=== PATIENT | female | born 1980 | race Caucasian/White ===

== ENCOUNTER → 2018-02-28 | Outpatient (CLI) | payer OTHER ==
--- NOTE | 2018-02-28 10:06 | Diagnostic Imaging Report ---
PROCEDURE: US Gallbladder. TECHNIQUE: Multiple real-time grayscale images were obtained over the right upper quadrant in various projections. INDICATION: Right upper quadrant pain. Liver parenchyma is homogeneous with normal echotexture. Gallbladder is clear without stones or wall thickening. Common duct is not dilated. Pancreas appeared normal. Right kidney measures 9.9 cm in length and appears normal. There is no ascites. IMPRESSION: Negative gallbladder sonogram. Dictated by: Dictated on workstation # [id number]
== END ==
LOC: RAD 09:08
PROVIDERS: ATTEND Nurse Practitioner Family
DX: R10.11 Right upper quadrant pain (principal); R74.8 Abnormal levels of other serum enzymes
CPT/HCPCS: 76705

== ENCOUNTER → 2018-03-03 | Outpatient (CLI) | payer OTHER ==
[~2018-03-03] MED LIST: CATHETER FLUSH 10 ML SYR IV PRN
--- NOTE | 2018-03-03 12:30 | Diagnostic Imaging Report ---
INDICATION: Right upper quadrant pain. Patient was administered 4.8 mCi technetium 99m Choletec and imaging over the abdomen was performed. At one hour patient ingested one can of ensure and gallbladder ejection fraction was calculated. There is homogeneous uptake of activity by the liver with prompt excretion of activity into the gallbladder and common duct. Normal passage of activity into the small bowel is seen. Gallbladder ejection fraction is abnormally low at 12%. Normal values are 33% or greater. IMPRESSION: 1. No evidence of cystic duct or common bile duct obstruction. 2. Low gallbladder ejection fraction of 12%. Dictated by: Dictated on workstation # [id number]
== END ==
LOC: CARD 10:01
PROVIDERS: ATTEND Nurse Practitioner Family
DX: R10.11 Right upper quadrant pain (principal)
CPT/HCPCS: 78227

== ENCOUNTER 2018-03-14 05:34 | Outpatient (CLI) | payer OTHER ==
[~2018-03-14] VITALS: Ht 165.1 cm; Wt 54.5 kg
== END 2018-03-14 12:53 | disposition home or self-care (01) ==
LOC: PREOP 05:34
PROVIDERS: ATTEND Surgery
DX: Z01.818 Encounter for other preprocedural examination (principal)

== ENCOUNTER 2018-03-17 08:30 | Day surgery (SDC) | payer OTHER ==
[~2018-03-17] VITALS: Ht 165.1 cm; Wt 54.5 kg
[2018-03-17] VITALS (7 sets, daily range): BP systolic 86–108; BP diastolic 56–80
[2018-03-17 09:13] LABS: BASOPHILS % (AUTO) 1 % (0-10); EOSINOPHILS # (AUTO) 0.2 10^3/uL (0.0-0.3); EOSINOPHILS % (AUTO) 5 % (0-10); HEMATOCRIT 39 % (35-52); HEMOGLOBIN 12.8 G/DL (11.5-16.0); LYMPHOCYTES # (AUTO) 1.5 X 10^3 (1.0-4.0); LYMPHOCYTES % (AUTO) 35 % (12-44); MEAN CORPUSCULAR HEMOGLOBIN 28 PG (25-34); MEAN CORPUSCULAR HGB CONC 33 G/DL (32-36); MEAN CORPUSCULAR VOLUME 85 FL (80-99); MONOCYTES # (AUTO) 0.4 X 10^3 (0.0-1.0); MONOCYTES % (AUTO) 8 % (0-12); NEUTROPHILS # (AUTO) 2.1 X 10^3 (1.8-7.8); NEUTROPHILS % (AUTO) 51 % (42-75); PLATELET COUNT 199 10^3/uL (130-400); RED BLOOD COUNT 4.52 10^6/uL (4.35-5.85); RED CELL DISTRIBUTION WIDTH 12.3 % (10.0-14.5); WHITE BLOOD COUNT 4.2 10^3/uL (4.3-11.0)
--- NOTE | 2018-03-17 09:13 | Progress Note-Pre Operative ---
Pre-Operative Progress Note H&P Reviewed The H&P was reviewed, patient examined and no changes noted. Date Seen by Provider: Mar 09, 2018 Time Seen by Provider: 11:00 Date H&P Reviewed: Mar 17, 2018 Time H&P Reviewed: 09:11 Pre-Operative Diagnosis: Chronic cholecystitis CIERRA NORIEGA MD Mar 17, 2018 09:12
[2018-03-17] MEDS: LACTATED RINGERS 1,000 ML IV PRN ×3 (09:14→13:30)
[2018-03-17] MEDS ORDERED: ceFAZolin INJECTION 1,000 MG in NS (IVPB) 50 ML IV ONE (09:15)
[2018-03-17] MEDS ORDERED: metroNIDAZOLE 500MG/100ML IVPB 100 ML IV ONE (09:15)
[2018-03-17] MEDS ORDERED: ceFAZolin 1,000 MG/10 ML (ANCEF) VIAL ONE (09:15)
[2018-03-17] MEDS ORDERED: metroNIDAZOLE 500MG/100ML IVPB 100 ML ONE (09:15)
[2018-03-17] MEDS ORDERED: NS (IVPB) 50 ML ONE (09:15)
[2018-03-17] MEDS ORDERED: fentaNYL INJECTION 100 MCG/2 ML AMP ONE ×2 (09:42→11:49)
[2018-03-17] MEDS ORDERED: NEOSTIGMINE 1 MG/ML 5 ML SYRINGE ONE (09:42)
[2018-03-17] MEDS ORDERED: ONDANSETRON 4 MG/2 ML (SDV) Z0FRAN ONE (09:42)
[2018-03-17] MEDS ORDERED: MIDAZOLAM 2 MG/2 ML (VERSED) VIAL ONE (09:42)
[2018-03-17] MEDS ORDERED: DEXAMETHASONE 10 MG/ML (DECADRON) 1 ML VIAL ONE (09:42)
[2018-03-17] MEDS ORDERED: proPOfol 200 MG/20 ML (DIPRIVAN) VIAL IV ONE (09:42)
[2018-03-17] MEDS ORDERED: LIDOCAINE PF 2% 5 ML (XYLOCAINE) VIAL ONE (09:42)
[2018-03-17] MEDS ORDERED: ROCURONIUM 10 MG/ML 5 ML SYRINGE IV ONE (09:42)
[2018-03-17] MEDS ORDERED: SEVOFLURANE (ULTANE) 15 ML INHAL SOLN ONE ×2 (09:42→11:25)
[2018-03-17] MEDS ORDERED: GLYCOPYRROLATE 0.2 MG/ML (ROBINUL) 2 ML VIAL ONE (09:42)
[2018-03-17] MEDS ORDERED: BUP/EPI 0.5% 1:200,000 (SENSORCAINE) 30 ML VIAL ONE (10:09)
[2018-03-17] MEDS ORDERED: PHENYLEPHRINE 100 MCG/ML 10 ML (ANESTHESIA) SYR ONE (11:13)
--- NOTE | 2018-03-17 11:15 | Operative Report ---
Operative Report Date of Procedure/Surgery Mar 17, 2018 Surgeon (s) CIERRA NORIEGA MD Literacy Specialist (s): N/A Post-Operative Diagnosis same Procedure Performed robotic-assisted cholecystectomy Description of Procedure Anesthesia Type: General Estimated blood loss (mL): 50 mL Specimen(s) collected/removed gallbladder Description of the Procedure Indication for the procedure: This lady presented with severe symptoms due to chronic, acalculous cholecystitis and reduced ejection fraction of the gallbladder. She was therefore offered cholecystectomy using minimally invasive technique with robotic assistance. Informed consent was obtained after reviewing the wound infection, bile leak and potential for persistent symptoms, requiring further evaluation. Description of the procedure: She was placed supine on the operating table and general anesthesia induced. A gram of Ancef and 500 mg of Flagyl were administered intravenously as prophylaxis against wound infection. Sequential compression devices were placed around her legs, to minimize the risk of venous thrombosis. Abdomen was prepared and draped in the usual sterile manner. A subumbilical incision was made and pneumoperitoneum established using a Veress needle. Intra -abdominal pressure was maintained at 15 mmHg, using carbon dioxide insufflation. A 12 mm trocar was placed and anatomy visualized using the high definition, 3-dimensional laparoscope, associated with da Dre system. Under direct view, I placed an 8 mm trocar over each side of the abdomen, followed by a 5 mm trocar over the left upper quadrant of the abdomen. She was then turned into reverse Trendelenburg position with the right side tilted up. The robotic system was then docked in place. The fundus of the gallbladder was retracted cephalad and the infundibulum grasped with Cadiere forceps. Peritoneum overlying Calot's triangle was incised using the hook cautery, delineating the cystic duct and artery. Both were controlled between locking clips. Cholecystectomy was then completed using the hook cautery. Subhepatic space was irrigated with saline and the gallbladder placed in an Endo Catch bag, being removed via the subumbilical trocar site. The fascia over this incision was closed using #1 Vicryl, using the Sundeep Jiménez device under direct view. Skin incisions were closed using 4-0 Vicryl, in a subcuticular fashion. 0.5 percent Marcaine with epinephrine was infiltrated along the incisions, both preemptively and at the conclusion of the operation. She tolerated the procedure well, was extubated in the operating room and taken to the recovery room in a stable condition. Findings of the Procedure see op report Allergies and Home Medications Allergies Coded Allergies: No Known Drug Allergies (Unverified , 03/14/18) Home Medications No Active Prescriptions or Reported Meds Patient Home Medication List Home Medication List Reviewed: Yes CIERRA NORIEGA MD Mar 17, 2018 11:15
[2018-03-17] MEDS ORDERED: ACHD5005 PO (11:16)
--- NOTE | 2018-03-17 11:16 | Discharge Inst-Simple/Standard ---
Discharge Inst-Standard Discharge Medications New, Converted or Re-Newed RX: RX on Chart Patient Instructions/Follow Up Plan of Care/Instructions/FU: Band-Aids off in 48 hours. Incentive spirometry. Follow-up in 3 weeks. Activity as Tolerated: Yes Discharge Diet: No Restrictions CIERRA NORIEGA MD Mar 17, 2018 11:16
[2018-03-17] MEDS ORDERED: MEPERIDINE (DEMEROL) INJ 50 MG/ML IVP ONE (11:45)
[2018-03-17] MEDS ORDERED: PROMETHAZINE INJ 25 MG/ML (PHENERGAN) AMP IVP ONE (11:45)
[2018-03-17] MEDS ORDERED: fentaNYL INJECTION 100 MCG/2 ML AMP IVP ONE (11:45)
[2018-03-17] MEDS ORDERED: ONDANSETRON 4 MG/2 ML (SDV) Z0FRAN IV ONE (13:45)
--- NOTE | 2018-03-17 13:46 | Anesthesia-General Post-Op ---
General Patient Condition Mental Status/LOC: Same as Preop Cardiovascular: Satisfactory Nausea/Vomiting: Present (Pt with some nausea post-op, given zofran. ) Respiratory: Satisfactory Pain: Controlled Complications: Absent Post Op Complications Complications None Follow Up Care/Instructions Patient Instructions None needed. Anesthesia/Patient Condition Patient Condition Patient is doing well, no complaints, stable vital signs, no apparent adverse anesthesia problems. SHAMIR SHEFFIELD DO Mar 17, 2018 13:46
[2018-03-17] MEDS ORDERED: HYDROcodone/APAP 5 MG/325 MG (LORTAB) TAB PO ONE (14:45)
[2018-03-17] MEDS: ONDANSETRON 4 MG/2 ML (SDV) Z0FRAN IVP PRN (14:48)
== END 2018-03-17 16:20 | disposition home or self-care (01) ==
LOC: SDC 08:30
PROVIDERS: ATTEND Surgery
DX: K81.1 Chronic cholecystitis (principal); K82.8 Other specified diseases of gallbladder; K21.9 Gastro-esophageal reflux disease without esophagitis
CPT/HCPCS: 36415; 84703; 85025; 87081; 88304; 94664

== ENCOUNTER → 2019-03-27 | Outpatient (CLI) | payer OTHER ==
[~2019-03-27] MED LIST changes: +ACHD5005 PO; -CATHETER FLUSH 10 ML SYR IV PRN
--- NOTE | 2019-03-27 15:54 | Diagnostic Imaging Report ---
PROCEDURE: US carotid duplex, bilateral. TECHNIQUE: Multiple real-time grayscale images were obtained over the carotid arteries in various projections, bilaterally. Additional spectral analysis and color Doppler duplex images were also obtained. INDICATION: Headaches and right neck pain. FINDINGS: No significant plaque is identified in either carotid system. Velocities are normal bilaterally. No velocity elevation or stenosis is seen. Both vertebral arteries demonstrate antegrade flow. IMPRESSION: No evidence of a hemodynamically significant stenosis. Parameters based on the consensus panel Boothe-Scale and Doppler ultrasound criteria published February 2003, Radiology, Volume 229. DOPPLER (peak systolic velocity M/S Right Left CCA 1.1 1.23 ICA Proximal .69 1.0 ICA Mid .86 1.0 ICA Distal .81 .83 RATIO .8 .8 ECA .88 .87 VERT .44 .63 Dictated by: Dictated on workstation # [id number]
--- NOTE | 2019-03-27 17:21 | Diagnostic Imaging Report ---
INDICATION: Chronic tension headache and right neck pain. FINDINGS: Sonographic interrogation of the right neck soft tissues was performed. There is a prominent lymph node identified between the right parotid gland and submandibular gland measuring 2.0 x 0.7 x 1.3 cm. A similar node is identified on the left side but slightly smaller at 2.0 x 0.7 x 1.0 cm. No other abnormality is seen. IMPRESSION: There are prominent lymph nodes in the neck bilaterally, larger on the right, as described. Dictated by: Dictated on workstation # [id number]
== END ==
LOC: RAD 13:08
PROVIDERS: ATTEND Nurse Practitioner Family
DX: G44.229 Chronic tension-type headache, not intractable (principal); M54.2 Cervicalgia
CPT/HCPCS: 76536; 93880

== ENCOUNTER → 2019-04-16 | Outpatient (CLI) | payer OTHER ==
[~2019-04-16] MED LIST changes: +CATHETER FLUSH 10 ML SYR IV PRN; +HOLD METFORMIN - RECEIVED CONTRAST 20 ML VIAL IV SCH; +IOHEXOL 350 MG/ML 100 ML (OMNIPAQUE 350) VIAL IV ONE; +NS 100 ML (IVPB) BAG IV ONE
--- NOTE | 2019-04-16 15:34 | Diagnostic Imaging Report ---
PROCEDURE: CT sinuses without contrast TECHNIQUE: Multiple contiguous axial images were obtained through the sinuses without the use of intravenous contrast. Coronal and sagittal reformations were then performed. Auto Exposure Controls were utilized during the CT exam to meet ALARA standards for radiation dose reduction. INDICATION: Right-sided headache for six months. FINDINGS: The frontal sinus is clear. Ethmoid air cells and sphenoid sinus are clear. Bilateral maxillary sinuses are clear. No mucosal thickening or air-fluid levels are seen. Mastoids are well aerated. Nasal septum demonstrates minimal rightward deviation. IMPRESSION: No evidence of sinusitis. Dictated by: Dictated on workstation # [id number]
--- NOTE | 2019-04-16 16:24 | Diagnostic Imaging Report ---
CLINICAL INDICATION: Patient with lymph nodes swollen and headache x6 months, right side and right ear. No past surgical history. EXAM: CT scan of the neck soft tissue performed with 75 mL of Omnipaque 350 IV contrast. Sagittal and coronal reformatted images are created. Auto Exposure Controls were utilized during the CT exam to meet ALARA standards for radiation dose reduction. COMPARISON: Ultrasound of the neck soft tissue dated 03/27/2019. FINDINGS: There are bilateral neck lymph nodes which are not significantly enlarged by size criteria. The largest one is seen in left level II-A region, which measures 1.2 cm x 0.7 cm x 1.6 cm (AP x Trans x CC). This is best seen on series 2, image 28. There is no other significant lymph node seen. The thyroid gland and salivary glands are unremarkable. The visualized portions of the oral cavity, tongue, sublingual space, and submandibular regions are unremarkable. The neck arterial and vascular structures are unremarkable. Visualized upper lung cerda are clear. Neck soft tissue structures show no significant abnormality. Cervical spine shows small posterior disc spur with minimal impression upon the thecal sac and moderate left neural foramen narrowing at the C5-C6 level. IMPRESSION: 1: There are bilateral neck lymph nodes which are not significantly enlarged by size criteria. 2: There is C5-C6 cervical spine degenerative disease. Otherwise, the remainder of the neck CT scan is unremarkable. Dictated by: Dictated on workstation # [id number]
== END ==
LOC: RAD 14:50
PROVIDERS: ATTEND Otolaryngology Otolaryngology/Facial Plastic Surgery
DX: M47.812 Spondylosis without myelopathy or radiculopathy, cervical region (principal)
CPT/HCPCS: 70486; 70491

== ENCOUNTER → 2019-06-20 | Outpatient (CLI) | payer OTHER ==
[~2019-06-20] MED LIST changes: -CATHETER FLUSH 10 ML SYR IV PRN; -HOLD METFORMIN - RECEIVED CONTRAST 20 ML VIAL IV SCH; -IOHEXOL 350 MG/ML 100 ML (OMNIPAQUE 350) VIAL IV ONE; -NS 100 ML (IVPB) BAG IV ONE
--- NOTE | 2019-06-20 14:56 | Diagnostic Imaging Report ---
PROCEDURE: MR imaging of the brain without contrast. TECHNIQUE: Multiplanar, multisequence MR imaging of the brain was performed without contrast. INDICATION: Right-sided headaches. COMPARISON: No prior studies are available for comparison. FINDINGS: Ventricles and sulci are within normal limits. No sulcal effacement is seen. There is no diffusion restriction. The normal expected flow voids within the carotid siphons are seen. No acute intra-axial or extra-axial hemorrhage is detected. Corpus callosum is unremarkable. The sella and parasellar structures are unremarkable. IMPRESSION: Unremarkable noncontrast MRI of the brain. Dictated by: Dictated on workstation # [id number]
== END ==
LOC: RAD 13:45
PROVIDERS: ATTEND Nurse Practitioner Family
DX: G44.229 Chronic tension-type headache, not intractable (principal)
CPT/HCPCS: 70551

== ENCOUNTER → 2022-11-01 | Outpatient (CLI) | payer OTHER ==
--- NOTE | 2022-11-01 15:48 | Diagnostic Imaging Report ---
INDICATION: Routine screening. COMPARISON: No prior mammograms are available for comparison. This is a baseline study. TECHNIQUE: 2D and 3D bilateral screening mammography was performed with CAD. FINDINGS: Both breasts are heterogeneously dense, limiting the sensitivity of mammography. No mass or malignant-appearing microcalcifications are identified. The axillae are unremarkable. IMPRESSION: No mammographic features suspicious for malignancy are identified. ACR BI-RADS Category 1: Negative. Result letter will be mailed to the patient. Note: At least 10% of breast cancer is not imaged by mammography. Dictated by: Dictated on workstation # [id number]
== END ==
LOC: RAD 14:10
PROVIDERS: ATTEND Nurse Practitioner Women's Health
DX: Z12.31 Encounter for screening mammogram for malignant neoplasm of breast (principal)
CPT/HCPCS: 77063; 77067